=== PATIENT | male | born 2000 | race African-American/Black ===

== ENCOUNTER → 2018-12-01 | Emergency (ER) | payer SELFPAY ==
[~2018-12-01] VITALS: Ht 172.7 cm; Wt 56.7 kg
[~2018-12-01] MED LIST: BUPIVACAINE 0.5% 30 ML (SENSORCAINE) VIAL INJ ONE; BUPIVACAINE 0.5% 30 ML (SENSORCAINE) VIAL ONE; CEPH500T PO; LIDOCAINE 1% INJ 20 ML 20 ML VIAL INJ ONE
[2018-12-01 15:52] VITALS: BP 128/73
--- OUTSIDE RECORDS SUMMARY | 2018-12-01 15:53 | XMS REPORT | Continuity of Care Document ---
Demographics Preferred Language Unknown Marital Status Unknown Protestant Affiliation Unknown Race Unknown Ethnic Group Unknown Author Organization Unknown Address Unknown Allergies Active Description Code Type Severity Reaction Onset Reported/Identified Relationship to Patient Clinical Status Yes No Known Drug Allergies [id number] Drug Allergy Unknown N/A 01/21/2018 Medications There is no data. Problems Date Dx Coded Attending Type Code Diagnosis Diagnosed By 03/21/2011 V70.3 SPORTS/SCHOOL EXAM 04/11/2011 477.9 RHINITIS 01/21/2018 MEDARDO RODRIGUEZ MD Ot F17.210 NICOTINE DEPENDENCE, CIGARETTES, UNCOMPL 01/21/2018 MEDARDO RODRIGUEZ MD Ot R30.0 DYSURIA 01/21/2018 MEDARDO RODRIGUEZ MD Ot Z20.2 CONTACT W AND EXPOSURE TO INFECT W A SEX Procedures There is no data. Results Test Result Range Chlamydia trachomatis DNA detection by probe and signal amplification method - 01/21/18 14:15 Chlamydia trachomatis DNA detection by probe and target amplification method Detected Not Detected Neisseria gonorrhoeae DNA detection by probe and signal amplification method - 01/21/18 14:15 Gonorrhea amp DNA-urine Not Detected Not Detected Complete urinalysis with reflex to culture - 01/21/18 14:16 Urine color determination YELLOW NRG Urine clarity determination CLEAR NRG Urine pH measurement by test strip 8 5-9 Specific gravity of urine by test strip 1.015 1.016- 1.022 Urine protein assay by test strip, semi-quantitative NEGATIVE NEGATIVE Urine glucose detection by automated test strip NEGATIVE NEGATIVE Erythrocytes detection in urine sediment by light microscopy NEGATIVE NEGATIVE Urine ketones detection by automated test strip NEGATIVE NEGATIVE Urine nitrite detection by test strip NEGATIVE NEGATIVE Urine total bilirubin detection by test strip NEGATIVE NEGATIVE Urine urobilinogen measurement by automated test strip (mass/volume) NORMAL NORMAL Urine leukocyte esterase detection by dipstick 1+ NEGATIVE Automated urine sediment erythrocyte count by microscopy (number/high power field) NONE NRG Automated urine sediment leukocyte count by microscopy (number/high power field ) [HPF] NRG Bacteria detection in urine sediment by light microscopy TRACE NRG Squamous epithelial cells detection in urine sediment by light microscopy RARE NRG Crystals detection in urine sediment by light microscopy NONE NRG Casts detection in urine sediment by light microscopy NONE NRG Mucus detection in urine sediment by light microscopy NEGATIVE NRG Complete urinalysis with reflex to culture NO NRG Encounters ACCT No. Visit Date/Time Discharge Status Pt. Type Provider Facility Loc./Unit Complaint [id number] 04/11/2011 14:15:00 04/11/2011 23:59:59 CLS Outpatient [id number] 08/14/2012 19:04:12 RECURRING [id number] 01/21/2018 13:48:00 01/21/2018 14:59:00 DIS Emergency MICHAEL PEREZ, MEDARDO Angulo [facility] ER STD TESTING
--- NOTE | 2018-12-01 15:59 | ED Upper Extremity ---
General Stated Complaint: L HAND LAC Source: patient Exam Limitations: no limitations History of Present Illness Date Seen by Provider: December 01, 2018 Time Seen by Provider: 15:55 Initial Comments To ER with laceration to the palmar left hand. They were grilling today when a knife that they have been using to cut meat with punctured the palmar surface of the hypothenar eminence left hand and exited on the ulnar side. He is able to flex all of his fingers but does report some tingling to the pinky and ring finger. Vaccinations are up-to-date. Onset: just prior to arrival Severity: mild Pain/Injury Location: left hand Method of Injury: unknown Modifying Factors: Worse With Movement Allergies and Home Medications Allergies Coded Allergies: No Known Drug Allergies (Unverified , 01/21/18) Home Medications Cephalexin 500 Mg Tablet, 500 MG PO TID Prescribed by: ULI HOUSER on 12/01/18 1559 Patient Home Medication List Home Medication List Reviewed: Yes Review of Systems Constitutional: see HPI EENTM: see HPI Respiratory: no symptoms reported Cardiovascular: no symptoms reported Genitourinary: no symptoms reported Musculoskeletal: see HPI Skin: see HPI Psychiatric/Neurological: No Symptoms Reported Past Dbnekgo-Ykngvs-Mbzaod Hx Patient Social History Type Used: Cigarettes Recent Foreign Travel: No Contact w/Someone Who Travel: No Recent Hopitalizations: No Seasonal Allergies Seasonal Allergies: No Past Medical History Surgeries: No Respiratory: No Cardiac: No Neurological: No Genitourinary: No Gastrointestinal: No Musculoskeletal: No Endocrine: No HEENT: No Cancer: No Psychosocial: No Integumentary: No Physical Exam Vital Signs Capillary Refill : Height, Weight, BMI Height: 5'8.00" Weight: 134lbs. oz. 60.874545ot; 14.06 BMI Method:Stated General Appearance: WD/WN, no apparent distress HEENT: PERRL/EOMI, normal ENT inspection Respiratory: no respiratory distress, no accessory muscle use Shoulder: normal inspection, non-tender Elbow/Forearm: normal inspection, non-tender Wrist: Yes normal inspection, Yes non-tender Hand: Left, laceration (there is a 1 cm laceration to the ulnar side of the palm of the left hand at the hypothenar eminence and a smaller 0.5 cm exit wound on the very ulnar side of the hypothenar eminence) Neurologic/Tendon: normal motor functions, normal tendon functions, responds to pain, sensory deficit Neurologic/Psychiatric: alert, normal mood/affect, oriented x 3 Skin: normal color, warm/dry Procedures/Interventions Wound Location: Upper Extremities Wound Length (cm): 1 Wound's Depth, Shape: into muscle, linear Wound Explored: clean Anesthesia: 1% Lidocaine Volume Anesthetic (ccs): 3 Suture: Prolene Suture Size: 5-0 Number of Sutures: 3 Layer Closure?: 1 Number Deep Layer Sutures: 0 The wound to the palmar surface was anesthetized with 3 mL of a 50-50 mixture of 1% lidocaine without epinephrine and 0.5% bupivacaine without epinephrine. Wound was then scrubbed with chlorhexidine/saline solution then irrigated both on the palmar surface of the wound and on the more ulnar exit site of the wound. The palmar surface wound was closed then with 3 simple interrupted sutures size 5-0 Prolene. The smaller 0.5 semi-laceration to the more ulnar side was left open to allow for drainage Progress/Results/Core Measures Results/Orders My Orders Orders - ULI HOUSER APRN Lidocaine 1% Inj 20 Ml (Xylocaine 1% Inj (12/01/18 16:00) Bupivacaine 0.5% Injection (Sensorcaine (12/01/18 16:00) Bupivacaine 0.5% Injection (Sensorcaine (12/01/18 15:58) Medications Given in ED Current Medications Medications Dose Ordered Sig/Jane Route Start Time Stop Time Status Last Admin Dose Admin Bupivacaine HCl 1 ml ONCE ONCE INJ 12/01/18 16:00 12/01/18 16:01 DC 12/01/18 16:05 1 ML Lidocaine HCl 2 ml ONCE ONCE INJ 12/01/18 16:00 12/01/18 16:01 DC 12/01/18 16:05 2 ML Departure Impression Primary Impression: Hand laceration Qualified Codes: S61.412A - Laceration without foreign body of left hand, initial encounter Disposition: HOME, SELF-CARE Condition: Stable Departure-Patient Inst. Decision time for Depature: 15:58 Referrals: NO,LOCAL PHYSICIAN (PCP) Primary Care Physician Patient Instructions: Laceration Repair With Stitches (DC) Add. Discharge Instructions: 1. You may shower allowing water run over the starting tonight. However do not soak this in water such as a hot tub bath tub or swimming pool until stitches are removed. Change the dressing daily for 2 days and keep it covered with a Band-Aid after that. The stitches should be removed in 7-10 days. You may have this done here in the emergency room. Take antibiotics as directed Scripts Cephalexin (Cephalexin) 500 Mg Tablet 500 MG PO TID, #15 TAB 0 Refills Prov: ULI HOUSER APRN 12/01/18 ULI HOUSER APRN December 01, 2018 15:59
== END | disposition home or self-care (01) ==
LOC: EDUNIT# 15:48 → ER 15:49
DX: S61.412A Laceration without foreign body of left hand, initial encounter (principal); W26.0XXA Contact with knife, initial encounter; Y93.G3 Activity, cooking and baking
CPT/HCPCS: 99282